=== PATIENT | male | born 1985 | race Caucasian/White ===

== ENCOUNTER 2018-03-25 08:57 | Emergency (ER) | payer OTHER ==
[~2018-03-25] VITALS: Ht 177.8 cm; Wt 111.9 kg
[2018-03-25 09:44] LABS: HEMATOCRIT 44.8 % (38.0-50.0); HEMOGLOBIN 15.7 G/DL (12.5-16.6); MCH 31.3 PG (29.0-34.0); MCV 89.4 FL (86-99); PLATELET COUNT 224 K/uL (156-360); RBC DIS.WIDTH-CV 12.3 % (11.8-14.6); RED BLOOD COUNT 5.01 M/uL (4.00-5.50); WHITE BLOOD COUNT 9.3 K/uL (4.1-10.2)
[2018-03-25 09:53] LABS: ALBUMIN 4.5 g/dL (3.2-4.8); CHLORIDE 106 mEq/L (99-109); POTASSIUM 4.5 mEq/L (3.7-5.4); SODIUM 141 mEq/L (136-147)
[2018-03-25 09:55] LABS: APPEARANCE CLEAR ((CLEAR)); BILIRUBIN NEGATIVE; BLOOD MODERATE; COLOR YELLOW ((YELLOW)); GLUCOSE (STRIP) NEGATIVE; KETONES NEGATIVE; LEUKOCYTES NEGATIVE; NITRITE NEGATIVE; PROTEIN (STRIP) NEGATIVE; SPECIFIC GRAVITY 1.013 (1.000-1.030); UROBILINOGEN 0.2 MG/DL (0.2-1.0)
[2018-03-25 09:56] LABS: GLUCOSE 111 mg/dL (70-99); TOTAL PROTEIN 7.8 g/dL (6.4-8.3)
[2018-03-25 09:57] LABS: BACTERIA NONE SEEN /HPF; EPITHELIAL CELLS NONE SEEN /HPF; MUCUS TRACE /LPF; RED BLOOD CELLS 0-5 /HPF (0-5); UCUL ADDED? NO; WHITE BLOOD CELLS 0-5 /HPF (0-5)
[2018-03-25] MEDS ORDERED: NORCO 5/3251 TABLET PO (09:57)
[2018-03-25 09:58] LABS: TOTAL BILIRUBIN 1.1 mg/dL (0.0-1.0)
[2018-03-25 09:59] LABS: ALKALINE PHOSPHATASE 94 IU/L (3-129); CREATININE 1.2 mg/dL (0.6-1.3); GFR ESTIMATE (CALCULATED) > 59 mL/min/ (58.99-99999)
[2018-03-25 10:00] LABS: UREA NITROGEN (BUN) 13 mg/dL (9-23)
[2018-03-25 10:01] LABS: AST (GOT) 21 IU/L (2-34)
[2018-03-25 10:02] LABS: ALT (GPT) 44 IU/L (3-49)
[2018-03-25] MEDS ORDERED: FLOMAX0.4 MG PO (10:27)
[2018-03-25 10:30] VITALS: BP 125/95
== END 2018-03-25 10:55 | disposition home or self-care (01) ==
LOC: EME 08:57
PROVIDERS: Emergency Medicine Emergency Medical Services
DX: N13.2 Hydronephrosis with renal and ureteral calculous obstruction (principal); N23 Unspecified renal colic; K76.0 Fatty (change of) liver, not elsewhere classified; K21.9 Gastro-esophageal reflux disease without esophagitis; F32.9 Major depressive disorder, single episode, unspecified
CPT/HCPCS: 74176; 80053; 81003; 85027; 99281; 99284

== ENCOUNTER → 2018-03-31 | Outpatient (CLI) | payer OTHER ==
[~2018-03-31] VITALS: Ht 177.8 cm; Wt 111.1 kg
[~2018-03-31] MED LIST: EXTRA STRENGTH500 M1 PO; FLOMAX0.4 MG PO; NORCO 5/3251 TABLET PO; PROZAC20 MG PO; ZANTAC75 M1 PO; ZYRTEC10 M3 PO
== END | disposition home or self-care (01) ==
LOC: AMB 08:41 → OPR 12:00 → AMB 04-28 07:30
PROC: 0TF7XZZ Fragmentation in Left Ureter, External Approach (ICD-10-PCS; principal; 2018-03-31)
DX: N20.1 Calculus of ureter (principal)
CPT/HCPCS: 74019; J2250; J3010